=== PATIENT | female | born 1945 | race Caucasian/White ===

== ENCOUNTER 2019-07-18 00:43 | Emergency (ER) | payer MEDICARE ==
[~2019-07-18] VITALS: Ht 154.9 cm; Wt 60.3 kg
[2019-07-18 00:45] VITALS: BP_SYST 138
[2019-07-18 01:50] LABS: BILIRUBIN,URINE NEGATIVE (NEGATIVE); BLOOD, URINE 3+ (NEGATIVE); COLOR,URINE YELLOW (YELLOW); GLUCOSE,URINE TRACE (NEGATIVE); KETONES,URINE NEGATIVE (NEGATIVE); LEUKOCYTE ESTERASE ,URINE 1+ (NEGATIVE); NITRITE, URINE NEGATIVE (NEGATIVE); PROTEIN URINE 2+ (NEGATIVE); UROBILINOGEN,URINE 0.2 (0.2-1.0)
[2019-07-18 01:54] LABS: CLARITY/URINE HAZY (CLEAR)
[2019-07-18 02:06] LABS: RBC,URINE 20-50 /HPF (0-3)
[2019-07-18 02:07] LABS: BACTERIA,URINE MANY /HPF (None Seen)
[2019-07-18] MEDS ORDERED: cefTRIAXone 1 GM VIAL IM ONE (03:15)
[2019-07-18] MEDS ORDERED: LIDOCAINE 1% 10 MG/ML, 20 ML MDV INJ ONE (03:30)
[2019-07-18 03:46] VITALS: BP_SYST 133
== END 2019-07-18 03:46 | disposition home or self-care (01) ==
LOC: SED 00:43
DX: N39.0 Urinary tract infection, site not specified (principal)
CPT/HCPCS: 81000; 87086; 96372; 99283; J0696; J2001; 87186-TC